=== PATIENT | female | born 1945 | race Caucasian/White ===

== ENCOUNTER 2019-12-12 11:16 | Outpatient (CLI) | payer MEDICARE, BC, SELFPAY ==
[2019-12-12 11:53] LABS: Basophils Absolute Auto 0.1 K/mm3 (0.0-0.1); Basophils Percent Auto 0.8 % (0.2-1.2); Eosinophils Absolute Auto 0.2 K/mm3 (0-0.3); Hemoglobin 13.8 g/dL (12.0-15.0); Immature Granulocyte Absolute 0.05 K/mm3 (0.00-0.031); Immature Granulocyte Percent A 0.8 % (0-0.5); Lymphocytes Absolute Auto 1.48 K/mm3 (0.9-3.2); Lymphocytes Percent Auto 24.8 % (18.3-44.2); Mean Corpuscular HGB Conc 32.9 g/dl (32-36); Mean Corpuscular Hemoglobin 28.9 pg (26-34); Mean Corpuscular Volume 87.9 fl (80-100); Monocytes Absolute Auto 0.4 K/mm3 (0.1-0.6); Monocytes Percent Auto 6.9 % (2.6-8.5); Neutrophils Absolute Auto 3.7 K/mm3 (1.3-6.7); Neutrophils Percent Auto 62.7 % (45.5-73.1); Platelet Count Result 226 k/mm3 (150-375); Red Blood Count 4.78 M/mm3 (4.2-5.4); Red Cell Distribution Width 13.5 % (11.5-14.5)
[2019-12-12 12:06] LABS: Alanine Aminotransferase 14 U/L (4-35); Albumin Level 4.4 g/dL (3.5-5.1); Alkaline Phosphatase 93 U/L (38-126); Aspartate Amino Transferase 20 U/L (14-36); Bilirubin,Total 0.4 mg/dL (0.2-1.3); Blood Urea Nitrogen 18 mg/dL (7-17); Calcium 9.4 mg/dL (8.4-10.2); Carbon Dioxide 26 mmol/L (22-30); Chloride 105 mmol/L (98-107); Cholesterol 188 mg/dL (0-200); Estimated Glomerular Filt Rate 48; Glucose 102 mg/dL (65-105); HDL Direct 34 mg/dL; Sodium 140 mmol/L (137-145); Triglycerides 124 mg/dL (<150)
[2019-12-12 12:17] LABS: LDL Cholesterol Direct 121 mg/dL
[2019-12-12 12:37] LABS: Thyroid Stimulating Hormone 0.105 uIU/mL (0.465-4.680); Total Triiodothyronine (T3) 0.97 NG/ML (0.97-1.69)
[2019-12-12 12:40] LABS: Microalbumin Urine Random 90.1 mg/L (0-16.7)
[2019-12-12 12:42] LABS: MALB Creatinine Ratio 118.6 mg/g (0-30)
[2019-12-12 13:12] LABS: Free T4 Free Thyroxine 1.61 ng/mL (0.78-2.19); Vitamin D 25 Hydroxy 39.6 ng/mL
== END 2019-12-12 11:17 | disposition home or self-care (01) ==
PROVIDERS: PCP Family Medicine; Visit Provider Family Medicine
DX: E03.9 Hypothyroidism, unspecified (principal); I10 Essential (primary) hypertension; N30.40 Irradiation cystitis without hematuria; R32 Unspecified urinary incontinence; Z13.0 Encounter for screening for diseases of the blood and blood-forming organs and certain disorders involving the immune mechanism; Z13.6 Encounter for screening for cardiovascular disorders; Z13.220 Encounter for screening for lipoid disorders; Z13.29 Encounter for screening for other suspected endocrine disorder; R80.9 Proteinuria, unspecified; E55.9 Vitamin D deficiency, unspecified
CPT/HCPCS: 36415; 80053; 80061; 82043; 82306; 84439; 84443; 84480; 85025

== ENCOUNTER 2019-12-20 13:21 | Outpatient (CLI) | payer MEDICARE, BC, SELFPAY ==
--- NOTE | ~2019-12-20 | NM_ITS ---
EXAMINATION: MAGDA vallejo renal scan DATE: 12/20/2019 14:35 INDICATION: Bilateral hydronephrosis. TECHNIQUE: 7.3 mCi Tc-99m MAG3 was administered IV. 40 mg furosemide was administered IV immediately afterward. The patient was scanned in the supine position. A posterior abdominal radionuclide angiog radha was obtained. A subsequent time course of static images of the kidneys, ureters, and bladder was obtained. COMPARISON: CT 08/02/19, ultrasound 08/29/2019 FINDINGS: The posterior abdominal radionuclide angiogram and sequential static images show normal siz e, position, and morphology of the kidneys. Peak renal parenchymal uptake was 3 min in right kidney a nd 3 min in left kidney (normal peak 3-5 minutes). The relative early renal uptake was 60% on the ri ght and 40% on the left (<40% is abnormal). T1/2 for clearance of activity from the right kidney and proximal collecting system was 16 minutes. T1/2 for clearance of activity from the left kidney and proximal collecting system was 24 minutes. Notes on interpretation: T1/2 <10 minutes is normal, 10-15 minutes is low grade obstruction of questi onable clinical significance, 15-20 minutes is partial obstruction that is likely clinically signific ant, >20 minutes is high grade obstruction. Note that false positives may be seen with supine positio heath, dehydration, severely dilated nonobstructed kidney, atonic collecting system, poor renal functi on, and chronic furosemide use. IMPRESSION: 1. Symmetric kidney function. 2. Delayed clearance of activity from the right kidney and proximal collecting system, consistent wit h partial obstruction that is likely clinically significant. Delayed clearance of activity from the l eft kidney and proximal collecting system, consistent with high-grade obstruction. Reviewed, dictated and finalized at location A. IMPRESSION: 1. Symmetric kidney function. 2. Delayed clearance of activity from the right kidney and proximal collecting system, consistent with partial obstruction that is likely clinically significa nt. Delayed clearance of activity from the left kidney and proximal collecting system, consistent with high-grade obstruction.
== END 2019-12-20 13:22 | disposition home or self-care (01) ==
LOC: ANHIMG 13:26
PROVIDERS: PCP Family Medicine; Visit Provider Urology
DX: N13.30 Unspecified hydronephrosis (principal); R93.422 Abnormal radiologic findings on diagnostic imaging of left kidney
CPT/HCPCS: 78708; A9562; J1940

== ENCOUNTER 2020-03-13 13:47 | Outpatient (CLI) | payer MEDICARE, BC, SELFPAY ==
--- NOTE | 2020-03-13 13:49 | ECG_ITS ---
Measurements Intervals Harleigh Rate: 61 P: 39 ME: 139 QRS: -17 QRSD: 90 T: -4 QT: 389 QTc: 392 Interpretive Statements SINUS RHYTHM VOLTAGE CRITERIA FOR LVH POOR R WAVE PROGRESSION, ANTERIOR LEADS BORDERLINE ST-T WAVE ABNORMALITY- ANT/INF LEADS BASELINE ARTIFACT- I, II, III, AVR, AVL, AVF BORDERLINE ECG Electronically Signed On 03-13-2020 14:32:15 CDT by Isidro Cam D.O.
== END 2020-03-13 13:48 | disposition home or self-care (01) ==
PROVIDERS: PCP Family Medicine; Visit Provider Urology
DX: Z01.818 Encounter for other preprocedural examination (principal); N13.30 Unspecified hydronephrosis; I10 Essential (primary) hypertension
CPT/HCPCS: 87077; 87086; 87088; 87186; 93005

== ENCOUNTER 2020-03-20 00:49 | Outpatient (CLI) | payer MEDICARE, BC, SELFPAY ==
[2020-03-20 19:19] LABS: SARS-CoV-2 RNA PCR Negative
== END 2020-03-20 00:50 | disposition home or self-care (01) ==
LOC: ANHCOVIDDT 00:49
PROVIDERS: PCP Family Medicine; Visit Provider Urology
DX: Z01.812 Encounter for preprocedural laboratory examination (principal); Z11.59 Encounter for screening for other viral diseases
CPT/HCPCS: 87635; C9803; U0003

== ENCOUNTER 2020-03-22 01:18 | Day surgery (SDC) | payer MEDICARE, BC, SELFPAY ==
[2020-03-12 16:15] VITALS: BMI 29.3
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
--- NOTE | 2020-03-22 07:17 | WPDHPUPDATE1 ---
History and Physical Update Update Date/Time: 03/22/20 07:17 History and Physical has been reviewed, including an updated exam of the patient. There are NO changes in the patient's condition. Risks, benefits, and alternatives have been discussed and questions answered. Patient agrees to proceed with procedure.
[2020-03-22] MEDS: LACTATED RINGERS 1,000 ML 30 ML IV CONT (11:30)
[2020-03-22 11:34] VITALS: BP 122/54; PULSE 57; RESP 18; TEMP 36.2; O2SAT 97
== END 2020-03-22 12:15 | disposition home or self-care (01) ==
PROVIDERS: PCP Family Medicine; Visit Provider Urology
PROC: (CPT 52352; principal; 2020-03-22 12:30)
DX: N13.30 Unspecified hydronephrosis (principal); Z53.9 Procedure and treatment not carried out, unspecified reason
CPT/HCPCS: J7120

== ENCOUNTER 2020-05-08 08:44 | Outpatient (CLI) | payer MEDICARE, BC, SELFPAY | END 2020-05-08 08:45 | disposition home or self-care (01) | LOC: ANHSURGERY 08:48 | PROVIDERS: PCP Family Medicine; Visit Provider Urology | DX: N13.30 Unspecified hydronephrosis (principal) | CPT/HCPCS: 87077; 87086; 87088; 87186 ==

== ENCOUNTER 2020-05-15 03:02 | Outpatient (CLI) | payer MEDICARE, BC, SELFPAY ==
[2020-05-15 18:40] LABS: SARS-CoV-2 RNA PCR Negative
== END 2020-05-15 03:03 | disposition home or self-care (01) ==
LOC: ANHCOVIDDT 03:02
PROVIDERS: PCP Family Medicine; Visit Provider Urology
DX: Z01.812 Encounter for preprocedural laboratory examination (principal); Z11.59 Encounter for screening for other viral diseases
CPT/HCPCS: 87635; C9803; U0003

== ENCOUNTER 2020-05-17 00:43 | Day surgery (SDC) | payer MEDICARE, BC, SELFPAY ==
[2020-05-06 09:28] VITALS: BMI 29.4
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
--- NOTE | ~2020-05-17 | XR_ITS ---
EXAMINATION: XR retrograde pyelogram BI DATE: 05/17/2020 12:32 INDICATION: Bilateral hydronephrosis. TECHNIQUE: 8 intraoperative fluoroscopic views of the abdomen and pelvis were obtained. I was not pre sent. Fluoroscopy exposure time was 22 seconds. COMPARISON: CT 08/02/2019 FINDINGS: The bilateral retrograde pyelograms demonstrate moderate bilateral hydronephrosis. No filli ng defect. IMPRESSION: 1. Moderate bilateral hydronephrosis. Reviewed, dictated and finalized at location A.
--- NOTE | 2020-05-17 07:19 | WPDHPUPDATE1 ---
History and Physical Update Update Date/Time: 05/17/20 07:19 History and Physical has been reviewed, including an updated exam of the patient. There are NO changes in the patient's condition. Risks, benefits, and alternatives have been discussed and questions answered. Patient agrees to proceed with procedure.
[2020-05-17 10:30] VITALS: BP 101/75; PULSE 55; RESP 18; TEMP 36.1; O2SAT 99
[2020-05-17] MEDS: LACTATED RINGERS 1,000 ML 30 ML IV CONT (10:45)
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
[2020-05-17] MEDS: levoFLOXacin 500 MG/D5W 100 ML 500 MG/100 ML BAG 100 MG IVPB (11:54)
[2020-05-17] MEDS: LIDOCAINE HCL 2% GEL UROJET 10 ML PKG MUCOUS MEM (12:20)
[2020-05-17 12:35] VITALS: BP 114/60; PULSE 60; RESP 12; O2SAT 96
[2020-05-17 12:54] VITALS: BP 120/59; PULSE 54; RESP 16
--- NOTE | 2020-05-17 13:19 | PM.PROC ---
Procedure Note - Detailed Date of procedure: 05/17/20 Pre-op diagnosis: Hydronephrosis bilateral hydronephrosis Hypervascular lesion urinary bladder Post-op diagnosis: same Procedure performed: cystoscopy with bilateral retrograde pyelograms Cystoscopy bladder biopsy Description of procedure: she is correctly identified informed consent obtained. She from the operating room. She was given mac anesthesia. She was placed in dorsal spine position. She was prepped and draped in a sterile fashion. Time-out performed. Cystoscopy revealed a trabeculated bladder which is somewhat low capacity. She had open ureteral orifices consistent with a vesicoureteral reflux. I performed bilateral retrograde pyelograms. First the left then on the right. She had no filling defects. She had hydronephrotic ureters bilaterally. They drained promptly. She again has vesicoureteral reflux. Examination of her bladder revealed a few reddened areas and some diffuse erythema. I biopsied 1 of these areas. I cauterized the small area. There is minimal bleeding from the cautery site. She was then awakened and transferred to the PACU in stable condition. Anesthesia: MAC Surgeon: Oumar Arboleda MD Estimated blood loss (mL): 1 Drains: No Packing: No Pathology: yes ( Bladder biopsy) Complications: No immediate complications Condition: stable Disposition: PACU
[2020-05-17 13:25] VITALS: BP 106/55; PULSE 45; RESP 16
== END 2020-05-17 14:30 | disposition home or self-care (01) ==
PROVIDERS: PCP Family Medicine; Visit Provider Urology
PROC: (CPT 52352; principal; 2020-05-17 12:15)
DX: N13.30 Unspecified hydronephrosis (principal); N32.89 Other specified disorders of bladder; N13.70 Vesicoureteral-reflux, unspecified; I10 Essential (primary) hypertension; E03.9 Hypothyroidism, unspecified; K21.9 Gastro-esophageal reflux disease without esophagitis; F41.9 Anxiety disorder, unspecified; E66.9 Obesity, unspecified; Z68.30 Body mass index [BMI] 30.0-30.9, adult
CPT/HCPCS: 52204; 74420; 88305; A9270; C1758; C1769; J1956; J2250; J2704; J3010; J7030; J7120; Q9966

== ENCOUNTER 2023-02-11 23:05 | Emergency (ER) | payer MEDICARE, BC, SELFPAY ==
--- NOTE | ~2023-02-11 | XR_ITS ---
Left foot Technique: AP, oblique, and lateral views were obtained. Clinical History: Pain Findings: No acute fracture or dislocation is seen. Osseous alignment is anatomic. There is mild to m oderate degenerative change of the tarsometatarsal joints. Soft tissues are unremarkable. Impression: No fracture or dislocation. Mild to moderate degenerative change at the tarsometatarsal joints. Reviewed, dictated and finalized at location M. Impression: No fracture or dislocation. Mild to moderate degenerative change at the tarsometatarsal joints.
--- NOTE | ~2023-02-11 | XR_ITS ---
Right Shoulder Technique: AP and axillary views were obtained. Clinical History: Pain Findings: No fracture or dislocation is seen. Osseous alignment is anatomic. There are mild degenerat carlos changes of the glenohumeral and acromial clavicular joints. Soft tissues are unremarkable. Impression: No fracture or dislocation. Mild degenerative changes, as above. Reviewed, dictated and finalized at location . Impression: No fracture or dislocation. Mild degenerative changes, as above.
--- NOTE | ~2023-02-11 | CT_ITS ---
Noncontrast CT scan of the cervical spine Technique: Multiple contiguous axial [address] images of the cervical spine were obtained and rec onstructed in 2D sagittal and coronal planes on the acquisition scanner. Dose reduction technique was used on this scan by utilizing automated exposure control, adjustment of the mA and/or kV according to patient size. The dose-length product (DLP) was 322.25 mGy-cm. Clinical History: Pain COMPARISON: 08/02/2019 Findings: No fractures or dislocations. There is diffuse facet arthropathy throughout the cervical s pine. There is mild bilateral neural foraminal narrowing at C3-C4. There is left neural foraminal merry rowing at C5-C6. There is bilateral neural foraminal narrowing at C6-C7. No definite central canal st enosis. The intervertebral disc spaces are preserved. No prevertebral soft tissue swelling. Impression: No fracture or subluxation of the cervical spine. Degenerative changes, as above. Reviewed, dictated and finalized at [facility]. Impression: No fracture or subluxation of the cervical spine. Degenerative changes, as above.
--- NOTE | ~2023-02-11 | CT_ITS ---
CT head without contrast Indication: Head injury COMPARISON: 08/02/2019 Technique: Serial scans were obtained through the brain without the administration of contrast. Dose reduction technique was used on this scan by utilizing automated exposure control and iterative recon struction technique. The dose-length product (DLP) was 681.00 mGy-cm. Findings: There is no evidence of intracranial hemorrhage, mass lesion, or acute infarct. The ventri cles and subarachnoid spaces are dilated, consistent with mild atrophy. Low attenuation regions are seen within the periventricular white matter bilaterally, likely representing changes from chronic mi crovascular ischemic disease. There is no evidence of edema, mass effect or midline shift. The visu alized paranasal sinuses and mastoid air cells are clear. Impression: No intracranial hemorrhage, mass, or acute infarct. Atrophy and chronic white matter changes, as above. Reviewed, dictated and finalized at [facility]. Impression: No intracranial hemorrhage, mass, or acute infarct. Atrophy and chronic white matter changes, as above.
[2023-02-11 23:11] VITALS: BP 134/62; PULSE 82; RESP 15; TEMP 36.3; O2SAT 96
[2023-02-12] MEDS: ACETAMINOPHEN 325 MG TABLET 650 MG PO (00:16)
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
[2023-02-12 02:30] VITALS: BP 136/66; PULSE 64; RESP 15; O2SAT 100
== END 2023-02-12 04:01 ==
PROVIDERS: Emergency Provider Physician Assistant
DX: S16.1XXA Strain of muscle, fascia and tendon at neck level, initial encounter (principal); F03.90 Unspecified dementia, unspecified severity, without behavioral disturbance, psychotic disturbance, mood disturbance, and anxiety; I10 Essential (primary) hypertension; E03.9 Hypothyroidism, unspecified; K21.9 Gastro-esophageal reflux disease without esophagitis; N80.9 Endometriosis, unspecified; M19.90 Unspecified osteoarthritis, unspecified site; F41.9 Anxiety disorder, unspecified; Z90.49 Acquired absence of other specified parts of digestive tract; Z90.710 Acquired absence of both cervix and uterus; W18.39XA Other fall on same level, initial encounter
CPT/HCPCS: 70450; 72125; 73030; 73630; 99284; A9270